=== PATIENT | male | born 1950 | race Caucasian/White ===

== ENCOUNTER 2017-04-29 11:30 | Emergency (ER) | payer OTHER ==
[2017-04-29 11:37] VITALS: RESP 18
[2017-04-29] MEDS ORDERED: OXYCODONE/APAP 5/325 TAB PO ONE (12:13)
--- NOTE | 2017-04-29 13:21 | EDPHY ---
H & P Stated Complaint: lac to l hand HPI/ROS: CHIEF COMPLAINT: Hand laceration HISTORY OF PRESENT ILLNESS: Patient was moving today with his son and was attempting open a box with a sharp knife. He accidentally stabbed himself in the left thenar eminence. Moderately painful. Moderate bleeding. No numbness or tingling. No difficulty moving the thumb or fingers. No injury elsewhere. Tetanus is up-to-date. Pain improved at rest. No other associated complaints or modifying factors. TIME OF INJURY: Less than 1 hour prior to arrival TETANUS STATUS: Less than 10 years ago REVIEW OF SYSTEMS: Ten systems reviewed and are negative unless otherwise noted in the HPI EXAMINATION General Appearance: Alert, no distress Head: normocephalic, atraumatic Cardiovascular: Pulses normal throughout. Symmetric radial pulses. Brisk cap refill all 5 fingers of the affected hand. Neurological: A&O, sensory symmetric, strength symmetric Skin: Warm and dry, no rash. There is a 4 cm laceration on the left thenar eminence. No tendinous exposure. No foreign body. Extremities: Nontender, no pedal edema DIFFERENTIAL DIAGNOSES: Including but not limited to complex laceration, laceration, laceration with arterial injury, laceration with tendon injury MDM: 12:15 p.m. Laceration to the left thenar eminence. There was moderate blood flow. There was a superficial arterial bleed that was cauterized without complication.. This was not a proper palmar artery, radial artery, median artery or ulnar artery. He was neurovascular intact pre and post cautery. The wound has been fully anesthetized. Proceed with irrigation closure. 1:20 p.m. Wound has been irrigated and closed with good approximation. He remains neurovascular intact with excellent flexion, extension, abduction abduction, opposition of the thumb. There is brisk cap refill in all fingers. No bleeding after the the procedure. Bulk dressing will be applied. Discharged home stable condition. Follow up here with primary care physician in 7-10 days for suture removal. Return for signs of bleeding or infection as discussed. PROCEDURE: Laceration repair Consent: Verbal Location: Left thenar eminence Length of repair: 4 cm Complexity: Complex Layer involvement: Single Anesthesia: Local, 1% lidocaine with epinephrine, 7 mL Irrigation: Extensive Debridement: None Procedure description: Following good anesthesia, the wound was copiously irrigated. Wound bed was explored and there is no foreign body noted. Wound borders were approximated well with good hemostasis. Tolerated well without complication. Suture/Staple material: 5-0 Ethilon, 8 simple interrupted sutures Wound care: Routine as discussed Suture/Staple removal: 7-10 Days SUTURE STAPLE REMOVAL: 7-10 days ED Precautions: Worsening pain. Erythema, edema, cyanosis, pallor, paresthesia or anesthesia. SUPERVISION: This patient was independently evaluated without direct examination by the attending physician. Case was discussed with attending physician. Source: Patient, Family Exam Limitations: No limitations - Personal History Current Tetanus/Diphtheria Vaccine: Yes - Medical/Surgical History Hx Asthma: No Hx Chronic Respiratory Disease: No Hx Diabetes: No Hx Cardiac Disease: Yes Hx Renal Disease: No Hx Cirrhosis: No Hx Alcoholism: No Hx HIV/AIDS: No Hx Splenectomy or Spleen Trauma: No Other PMH: migraines/ablation for afil - Social History Smoking Status: Never smoked Constitutional: Initial Vital Signs Temperature (C) 97.5 F 04/29/17 11:35 Heart Rate 73 04/29/17 11:35 Respiratory Rate 18 04/29/17 11:35 Blood Pressure 135/81 H 04/29/17 11:35 O2 Sat (%) 93 04/29/17 11:35 O2 Delivery Mode Room Air Allergies/Adverse Reactions: No Known Allergies Allergy (Unverified 04/29/17 11:33) Home Medications: Medication Instructions Recorded ACETAZOLAMIDE 04/29/17 ALPRAZolam 04/29/17 Aspirin 81mg (*) 04/29/17 Hydrocodon-Acetaminophen 5-300 04/29/17 IMITREX 04/29/17 Omeprazole 04/29/17 Propranolol HCl 04/29/17 Medical Decision Making - Data Points Medications Given: Discontinued Medications Oxycodone/Acetaminophen (Percocet 5/325) 1 tab PO EDNOW ONE Stop: 04/29/17 12:14 Last Admin: 04/29/17 12:16 Dose: 1 tab Departure - Departure Disposition: Home, Routine, Self-Care Clinical Impression: Laceration of thumb without complication Qualifiers: Encounter type: initial encounter Laterality: left Qualified Code(s): S61.012A - Laceration without foreign body of left thumb without damage to nail, initial encounter Condition: Good Instructions: Care For Your Stitches (ED), Laceration (ED) Additional Instructions: 1. Daily wound care as discussed 2. Follow up here in 7-10 days for suture removal 3. Light activity for the duration of the sutures 4. Return here for signs of bleeding or infection as discussed Referrals: ERICK BANG [Other] - As per Instructions
[2017-04-29 13:29] VITALS: BP 127/87; PULSE 67; TEMP 97.3; O2SAT 98
== END 2017-04-29 13:28 | disposition home or self-care (01) ==
PROC: 0HQGXZZ Repair Left Hand Skin, External Approach (ICD-10-PCS; principal; 2017-04-29)
DX: S61.012A Laceration without foreign body of left thumb without damage to nail, initial encounter (principal); Z79.82 Long term (current) use of aspirin; W26.0XXA Contact with knife, initial encounter